=== PATIENT | female | born 1965 | race Caucasian/White ===

== ENCOUNTER 2019-01-29 15:48 | Emergency (ER) | payer OTHER ==
[~2019-01-29] VITALS: Ht 152.4 cm; Wt 63.5 kg
[2019-01-29] MEDS ORDERED: CLONAZEPAM0.5 MG (16:00)
[2019-01-29] MEDS ORDERED: PROSCAR5 MG (16:00)
== END 2019-01-29 19:30 | disposition home or self-care (01) ==
LOC: ER 15:48
DX: G40.802 Other epilepsy, not intractable, without status epilepticus (principal); K29.60 Other gastritis without bleeding; R53.1 Weakness